=== PATIENT | female | born 1965 | race African-American/Black ===

== ENCOUNTER 2023-09-07 10:55 | Day surgery (SDC) | payer OTHER ==
[~2023-09-07] VITALS: Ht 167.6 cm; Wt 86.2 kg
[~2023-09-07 10:55] MED LIST: LIDOCAINE 2% 100 MG/5 ML UJET TP ONE; MIDAZOLAM 5 MG/5 ML VIAL ONE; diphenhydrAMINE 50 MG/ML VIAL ONE; fentaNYL citrate 0.05 MG/ML VIAL ONE
[2023-09-07] MEDS ORDERED: MIDAZOLAM 2 MG/2 ML VIAL ONE (12:27)
[2023-09-07] MEDS ORDERED: diphenhydrAMINE 50 MG/ML VIAL ONE (12:27)
[2023-09-07] MEDS ORDERED: LIDOCAINE 2% 100 MG/5 ML UJET TP ONE ×2 (12:27→13:25)
[2023-09-07] MEDS ORDERED: fentaNYL citrate 0.05 MG/ML VIAL ONE (12:27)
[2023-09-07] MEDS ORDERED: MIDAZOLAM 2 MG/2 ML VIAL IV ONE (13:25)
[2023-09-07] MEDS ORDERED: fentaNYL citrate 0.05 MG/ML VIAL IVP ONE (13:25)
[2023-09-07] MEDS ORDERED: SIMETHICONE 40 MG/0.6 ML ONE (13:26)
== END 2023-09-07 14:12 | disposition home or self-care (01) ==
LOC: MOR 10:55 → MMU 11:12 → MOR 14:12
PROVIDERS: ATTEND Internal Medicine Gastroenterology
DX: Z12.11 Encounter for screening for malignant neoplasm of colon (principal); K63.5 Polyp of colon
CPT/HCPCS: 45380; 88305; J2250; J3010; J1200